=== PATIENT | male | born 1960 | race Hispanic/Latino ===

== ENCOUNTER 2018-03-28 20:22 | Inpatient (IN) | payer MEDICARE ==
[2018-03-28 20:29] VITALS: O2SAT 98
--- NOTE | 2018-03-28 20:35 | ED PDOC ---
Psych Transfer Clearance - Clearance Statement Clearance Statement: Dr Durán reviewed vital signs, lab results and transfer papers. Patient clinically stable for psychiatric admission.
[2018-03-28] MEDS ORDERED: Bismuth Subsalicylate 262 mg/15 ml Sus (240 ml) PO PRN (21:26)
[2018-03-28] MEDS ORDERED: Magnesium Hydroxide Susp 30 ml UD PO PRN (21:26)
[2018-03-28] MEDS ORDERED: Alum-Mag Hydrox-Simethicone Susp (30 mL) PO PRN (21:26)
[2018-03-28] MEDS ORDERED: DiphenhydrAMINE 50 mg/ml Inj IM PRN (21:29)
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
[2018-03-29 06:22] LABS: HEMOGLOBIN 14.8 g/dL (12.0-18.0); MEAN CORPUSCULAR HEMOGLOBIN 28.3 pg (27.0-31.0); MEAN CORPUSCULAR HGB CONC 32.9 g/dL (33.0-37.0); RBC 5.22 Mil/uL (4.40-5.90); RED CELL DISTRIBUTION WIDTH 13.7 % (11.5-14.5); WHITE BLOOD COUNT 4.7 K/uL (4.8-10.8)
[2018-03-29 07:17] LABS: ALB/GLOB RATIO 1.1 (1.0-2.1); ALBUMIN 3.8 g/dL (3.5-5.0); ALT/SGPT 36 U/L (21-72); AST/SGOT 30 U/L (17-59); BLOOD UREA NITROGEN 16 mg/dl (9-20); GFR NON-AFRICAN AMERICAN > 60; HDL CHOLESTEROL 53 MG/DL (30-70)
[2018-03-29 07:25] LABS: LDL CHOLESTEROL 120 mg/dL (0-129)
[2018-03-29 07:31] LABS: T4 6.35 ug/dl (5.5-11.0)
[2018-03-29 07:50] LABS: FERRITIN 88.8 ng/Ml (17.9-464)
--- NOTE | 2018-03-29 10:43 | CP.PCM.CON ---
<Lyudmila Veras - Last Filed: 03/29/18 13:07> History of Present Illness - History of Present Illness History of Present Illness: Pt is a 57 y/o male admitted to psych unit brought in for suicidal ideation, has hx of prior suicidal attempt. Reports that he feels hopeless these days. Denies suicidal plans or recent attempts. Denies auditory, visual or tactile hallucinations. Denies: CP, SOB, Cough, fever/chills, abdominal pain, n/v/c/d, dysuria, heat intolerance, palpitations, headache, or unintended weight loss. Reports good exercise tolerance. PMD: None PMHX: Denies Medications: none NKDA PSurgHx: Denies PFamHx: Denies Social: Unemployed, lives on SSI and Disability,homeless, has brother and sister in the area. Occasional canniboids but states he has cut back. Has occasional Cigar (<1/month). Drinks socially (1-2x/month) 1-2 shots of vodka. Denies illicit drug use Past Patient History - Past Social History Smoking Status: Unknown If Ever Smoked - CARDIAC Hx Cardiac Disorders: No Hx Hypercholesterolemia: No Hx Hypertension: No - PULMONARY Hx Respiratory Disorders: No Hx Asthma: No Hx Bronchitis: No Hx Chronic Obstructive Pulmonary Disease (COPD): No Hx Emphysema: No - NEUROLOGICAL Hx Neurological Disorder: No Hx Seizures: No - HEENT Hx HEENT Problems: No - RENAL Hx Chronic Kidney Disease: No - ENDOCRINE/METABOLIC Hx Endocrine Disorders: No Hx Diabetes Mellitus Type 1: No Hx Diabetes Mellitus Type 2: No Hx Hypothyroidism: No - HEMATOLOGICAL/ONCOLOGICAL Hx Blood Disorders: No - INTEGUMENTARY Hx Dermatological Problems: No - MUSCULOSKELETAL/RHEUMATOLOGICAL Hx Musculoskeletal Disorders: No Hx Falls: No Hx Unsteady Gait: No - GASTROINTESTINAL Hx Gastrointestinal Disorders: No HX Swallowing Problems: No - GENITOURINARY/GYNECOLOGICAL Hx Genitourinary Disorders: No - PSYCHIATRIC Hx Depression: Yes Hx Substance Use: Yes - SURGICAL HISTORY Hx Surgeries: No - ANESTHESIA Hx Anesthesia: No Hx Anesthesia Reactions: No Hx Malignant Hyperthermia: No Has any member of the family had a problem w/ anesthesia?: No Meds Allergies/Adverse Reactions: Allergies Allergy/AdvReac Type Severity Reaction Status Date / Time No Known Allergies Allergy Verified 03/28/18 20:25 - Medications Medications: Current Medications Acetaminophen (Tylenol 325mg Tab) 650 mg PO Q4 PRN PRN Reason: Pain, moderate (4-7) Al Hydrox/Mg Hydrox/Simethicone (Maalox Plus 30 Ml) 30 ml PO Q4 PRN PRN Reason: Dyspepsia Bismuth Subsalicylate (Pepto-Bismol) 524 mg PO Q4 PRN PRN Reason: Diarrhea Diphenhydramine HCl (Benadryl) 50 mg IM Q6 PRN PRN Reason: Extrapyramidal S/S Unable PO Diphenhydramine HCl (Benadryl) 50 mg PO Q6 PRN PRN Reason: Extrapyramidal Symptoms Diphenhydramine HCl (Benadryl) 50 mg PO HS PRN PRN Reason: Sleep Haloperidol (Haldol) 5 mg PO Q4 PRN PRN Reason: Agitation Haloperidol Lactate (Haldol) 5 mg IM Q4 PRN PRN Reason: Agitation, Unable to Take PO Lorazepam (Ativan) 1 mg IM Q8 PRN PRN Reason: Anxiety/Agitation,Unable PO Lorazepam (Ativan) 1 mg PO Q8 PRN PRN Reason: Anxiety/Agitation Magnesium Hydroxide (Milk Of Magnesia) 30 ml PO HS PRN PRN Reason: Constipation Physical Exam - Constitutional Appears: No Acute Distress (Obese male, calm and cooperative with exam) - Head Exam Head Exam: NORMAL INSPECTION - Eye Exam Eye Exam: Normal appearance - ENT Exam ENT Exam: Mucous Membranes Moist - Cardiovascular Exam Cardiovascular Exam: REGULAR RHYTHM, +S1, +S2. absent: Systolic Murmur - GI/Abdominal Exam GI & Abdominal Exam: Normal Bowel Sounds, Soft. absent: Tenderness - Extremities Exam Extremities exam: Positive for: normal inspection. Negative for: pedal edema - Neurological Exam Neurological exam: Alert, Oriented x3 - Psychiatric Exam Psychiatric exam: Flat Affect - Skin Skin Exam: Normal Color Results - Vital Signs Recent Vital Signs: Last Vital Signs Temp 97.9 F 03/29/18 05:38 Pulse 78 03/29/18 05:38 Resp 20 03/29/18 05:38 BP 144/90 03/29/18 05:38 Pulse Ox 98 03/28/18 20:25 - Labs Result Diagrams: 03/29/18 06:09 03/29/18 06:09 Labs: Laboratory Results - last 24 hr 01/03/29/18 03/29/18 06:09 06:09 06:09 WBC 4.7 L RBC 5.22 Hgb 14.8 Hct 44.9 MCV 86.0 MCH 28.3 MCHC 32.9 L RDW 13.7 Plt Count 221 Sodium 135 Potassium 4.1 Chloride 100 Carbon Dioxide 28 Anion Gap 11 BUN 16 Creatinine 0.8 Est GFR ( Amer) > 60 Est GFR (Non-Af Amer) > 60 Random Glucose 100 Calcium 9.0 Ferritin 88.8 Total Bilirubin 0.6 AST 30 ALT 36 Alkaline Phosphatase 71 Total Protein 7.2 Albumin 3.8 Globulin 3.4 Albumin/Globulin Ratio 1.1 Triglycerides 206 H Cholesterol 179 LDL Cholesterol Direct 120 HDL Cholesterol 53 Vitamin B12 < 159 L Free T4 0.87 Thyroxine (T4) 6.35 TSH 3rd Generation 5.44 H Assessment & Plan - Assessment and Plan (Free Text) Assessment: 57 y/o female with hx of Obesity and prior suicide attempt admitted to psychiatric unit for suicidal ideation. BP noted to be elevated. #Suicidal Ideation -As per psych management -Likely underlying depression #Elevated blood pressure -BP noted to be elevated 146/101 and 144/90 -Will need to be placed on antihypertensive with target goal <140 systolic and <90 as per JNC 8 guidelines. Discussed with patient and he has refused any pharmacological intervention at this time. Encouraged weight loss and lifestyle modifications -DASH/Cardiac Diet #Obesity -Hemoglobin A1C normal -Lipid panel: elevated TAG, otherwise normal #High TSH -TSH 5.44 -T4 normal -Subclinical hypothyroidism with low risk for future development of overt hypothyroidism. No proven benefit of starting supplementation. -Should repeat outpatient #Low B12 -<159 -No signs of Macrocytic Anemia -Will check for Methylmalonic Acid to confirm -Will supplement with oral or IM if confirmed Patient advised to get a PMD for management of his general health. <Christopher Tellez - Last Filed: 03/29/18 13:13> Meds - Medications Medications: Current Medications Acetaminophen (Tylenol 325mg Tab) 650 mg PO Q4 PRN PRN Reason: Pain, moderate (4-7) Al Hydrox/Mg Hydrox/Simethicone (Maalox Plus 30 Ml) 30 ml PO Q4 PRN PRN Reason: Dyspepsia Bismuth Subsalicylate (Pepto-Bismol) 524 mg PO Q4 PRN PRN Reason: Diarrhea Diphenhydramine HCl (Benadryl) 50 mg IM Q6 PRN PRN Reason: Extrapyramidal S/S Unable PO Diphenhydramine HCl (Benadryl) 50 mg PO Q6 PRN PRN Reason: Extrapyramidal Symptoms Diphenhydramine HCl (Benadryl) 50 mg PO HS PRN PRN Reason: Sleep Haloperidol (Haldol) 5 mg PO Q4 PRN PRN Reason: Agitation Haloperidol Lactate (Haldol) 5 mg IM Q4 PRN PRN Reason: Agitation, Unable to Take PO Lorazepam (Ativan) 1 mg IM Q8 PRN PRN Reason: Anxiety/Agitation,Unable PO Lorazepam (Ativan) 1 mg PO Q8 PRN PRN Reason: Anxiety/Agitation Magnesium Hydroxide (Milk Of Magnesia) 30 ml PO HS PRN PRN Reason: Constipation Quetiapine Fumarate (Seroquel) 100 mg PO HS CONNIE Results - Vital Signs Recent Vital Signs: Last Vital Signs Temp 97.9 F 03/29/18 05:38 Pulse 78 03/29/18 05:38 Resp 20 03/29/18 05:38 BP 144/90 03/29/18 05:38 Pulse Ox 98 03/28/18 20:25 - Labs Result Diagrams: 03/29/18 06:09 03/29/18 06:09 Labs: Laboratory Results - last 24 hr 03/29/18 03/29/18 03/29/18 06:09 06:09 06:09 WBC 4.7 L RBC 5.22 Hgb 14.8 Hct 44.9 MCV 86.0 MCH 28.3 MCHC 32.9 L RDW 13.7 Plt Count 221 Sodium 135 Potassium 4.1 Chloride 100 Carbon Dioxide 28 Anion Gap 11 BUN 16 Creatinine 0.8 Est GFR ( Amer) > 60 Est GFR (Non-Af Amer) > 60 Random Glucose 100 Hemoglobin A1c 5.4 Calcium 9.0 Ferritin 88.8 Total Bilirubin 0.6 AST 30 ALT 36 Alkaline Phosphatase 71 Total Protein 7.2 Albumin 3.8 Globulin 3.4 Albumin/Globulin Ratio 1.1 Triglycerides 206 H Cholesterol 179 LDL Cholesterol Direct 120 HDL Cholesterol 53 Vitamin B12 < 159 L Free T4 Thyroxine (T4) 6.35 TSH 3rd Generation 5.44 H 03/29/18 06:09 WBC RBC Hgb Hct MCV MCH MCHC RDW Plt Count Sodium Potassium Chloride Carbon Dioxide Anion Gap BUN Creatinine Est GFR ( Amer) Est GFR (Non-Af Amer) Random Glucose Hemoglobin A1c Calcium Ferritin Total Bilirubin AST ALT Alkaline Phosphatase Total Protein Albumin Globulin Albumin/Globulin Ratio Triglycerides Cholesterol LDL Cholesterol Direct HDL Cholesterol Vitamin B12 Free T4 0.87 Thyroxine (T4) TSH 3rd Generation Attending/Attestation - Attestation I have personally seen and examined this patient.: Yes I have fully participated in the care of the patient.: Yes I have reviewed all pertinent clinical information: Yes Notes (Text): 03/29/18 13:13 Patient seen and examined with resident. Case discussed and agreed with assessment.
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
[2018-03-29 21:24] LABS: FOLATE 11.3 ng/mL
--- NOTE | 2018-03-30 10:01 | PCM.PYCHPN ---
Psychiatric Progress Note - Psychiatric Progress Note Patient seen today, length of contact: pt is seen and evaluated. Patient Chief Complaint: pt has remained very depressed and anxious and unable to sleep at night and with poor insight and need further stabilization . Mental Status Examination - Cognitive Function Orientation: Person, Place, Situation, Time - Mood Mood: Depressed - Affect Affect: Constricted, Depressed - Formal Thought Process Formal Thought Process: Circumstantial
--- NOTE | 2018-03-30 10:28 | PCM.PYCHPN ---
Psychiatric Progress Note - Psychiatric Progress Note Patient seen today, length of contact: pt is seen and evaluated. Patient Chief Complaint: pt has remained very depressed and anxious and unable to sleep at night and with poor insight and need further stabilization . Medication Change: Yes (increase seroquel to 150 gbhs to stabilize mood ,depression) Mental Status Examination - Cognitive Function Orientation: Person, Place, Situation, Time - Mood Mood: Depressed - Affect Affect: Constricted, Depressed - Formal Thought Process Formal Thought Process: Circumstantial Goal/Treatment Plan - Goal/Treatment Plan Progress Toward Problem(s) and Goals/Treatment Plan: will continue to stabilize pt with titrating seroquel to 150 mg hs to stabilize the mood and depression and engage pt in therapu. Disposition as per dr summers
--- NOTE | 2018-03-31 10:43 | PCM.PYCHPN ---
Psychiatric Progress Note - Psychiatric Progress Note Patient seen today, length of contact: pt is seen and evaluated. Patient Chief Complaint: I am having hard time to sleep Problems Identified/Issues Discussed: pt evaluated , presenting with depressed mood and affect, reported poor sleep, isolating himself in his room, denied any current thoughts of self harm denied perceptual disturbances DSM 5 Symptoms Update: bipolar disorder depressed Medication Change: Yes (increase seroquel to 200 mg qhs ) Medical Record Reviewed: Yes Mental Status Examination - Cognitive Function Orientation: Person, Place, Situation, Time Memory: Intact Attention: WNL Concentration: WNL Association: WNL Fund of Knowledge: [facility] Decription of patient's judgement and insights: partial insight fair judgment - Mood Mood: Depressed - Affect Affect: Constricted, Depressed - Speech Speech: Soft - Formal Thought Process Formal Thought Process: Circumstantial - Suicidal Ideation Suicidal Ideation: No - Homicidal Ideation Homicidal Ideation: No Goal/Treatment Plan - Goal/Treatment Plan Need for Continued Stay: Severe depression anxiety, Discharge may exacerbated symptoms Progress Toward Problem(s) and Goals/Treatment Plan: increase seroquel 200mg qhs cbt , group and supportive therapy
--- NOTE | 2018-04-01 09:59 | PCM.PYCHPN ---
Psychiatric Progress Note - Psychiatric Progress Note Patient seen today, length of contact: Pt evaluated, case discussed w/ team, chart reviewed Patient Chief Complaint: "I'm at the end of my rope." Problems Identified/Issues Discussed: Patient continues to be depressed and labile. He was observed talking and cursing to himself, but he is denying psychotic symptoms to song writer. Patient appears guarded and internally preoccupied. He denies acute AH/VH/SI/HI. Medication Change: Yes (Increase Seroquel) Medical Record Reviewed: Yes Consults ordered or reviewed: Medicine consult Mental Status Examination - Cognitive Function Orientation: Person, Place, Situation, Time Memory: Intact Attention: WNL Concentration: WNL Association: WNL Fund of Knowledge: [facility] Decription of patient's judgement and insights: Poor I/J - Mood Mood: Depressed - Affect Affect: Constricted, Depressed - Speech Speech: Soft - Formal Thought Process Formal Thought Process: Circumstantial Psychotic Thoughts and Behaviors: Denies AH/VH/paranoia/delusions but seems internally preoccupied. - Suicidal Ideation Suicidal Ideation: No - Homicidal Ideation Homicidal Ideation: No Goal/Treatment Plan - Goal/Treatment Plan Need for Continued Stay: Severe depression anxiety, Discharge may exacerbated symptoms Progress Toward Problem(s) and Goals/Treatment Plan: Bipolar Disorder -Individual and group therapy -Psychoeducation -Increase Seroquel -Medicine consult -Disposition planning
[2018-04-01 12:18] LABS: METHYLMALONIC ACID,SERUM 526 nmol/L (87-318)
--- NOTE | 2018-04-02 09:50 | PCM.PYCHPN ---
Psychiatric Progress Note - Psychiatric Progress Note Patient seen today, length of contact: Pt evaluated, case discussed w/ team, chart reviewed Patient Chief Complaint: "I'm at the end of my rope." Problems Identified/Issues Discussed: Patient continues to be guarded, observed talking to himself at times and grabbing at the air. He does not want to speak with science writer, just stating "I already spoke with you yesterday." Yesterday patient stated he is not agreeab le to taking more than Seroquel 250 mg and is not agreeable to taking any other medications at this time. Medication Change: No Medical Record Reviewed: Yes Consults ordered or reviewed: Medicine consult Mental Status Examination - Cognitive Function Orientation: Person, Place, Situation, Time Memory: Intact Attention: WNL Concentration: WNL Association: WNL Fund of Knowledge: [facility] Decription of patient's judgement and insights: Poor I/J - Affect Affect: Constricted - Speech Speech: Appropriate - Formal Thought Process Formal Thought Process: Other (Poverty of speech) Psychotic Thoughts and Behaviors: Guarded, seems internally preoccupied at times - Suicidal Ideation Suicidal Ideation: No - Homicidal Ideation Homicidal Ideation: No Goal/Treatment Plan - Goal/Treatment Plan Need for Continued Stay: Severe depression anxiety, Discharge may exacerbated symptoms Progress Toward Problem(s) and Goals/Treatment Plan: Bipolar Disorder -Individual and group therapy -Psychoeducation -Continue Seroquel -Medicine consult -Disposition planning
--- NOTE | 2018-04-03 11:09 | PCM.PYCHPN ---
Psychiatric Progress Note - Psychiatric Progress Note Patient seen today, length of contact: Pt evaluated, case discussed w/ team, chart reviewed Patient Chief Complaint: "I'm at the end of my rope." Problems Identified/Issues Discussed: Patient continues to be guarded, responding to internal stimuli, observed talking to himself and cursing spontaneously. He continues to refuse to engage in a long conversation with underwriter solicitation director. He is now agreeable with increasing the Seroquel after speaking to his brother in law. Medication Change: Yes (Increase Seroquel) Medical Record Reviewed: Yes Consults ordered or reviewed: Medicine consult Mental Status Examination - Cognitive Function Orientation: Person, Place, Situation, Time Memory: Intact Attention: WNL Concentration: WNL Association: WNL Fund of Knowledge: [facility] Decription of patient's judgement and insights: Poor I/J - Mood Mood: Depressed - Affect Affect: Constricted - Speech Speech: Appropriate - Formal Thought Process Formal Thought Process: Other (Poverty of speech) Psychotic Thoughts and Behaviors: Guarded, seems internally preoccupied at times, observed talking to himself - Suicidal Ideation Suicidal Ideation: No - Homicidal Ideation Homicidal Ideation: No Goal/Treatment Plan - Goal/Treatment Plan Need for Continued Stay: Severe depression anxiety, Discharge may exacerbated symptoms Progress Toward Problem(s) and Goals/Treatment Plan: Bipolar Disorder -Individual and group therapy -Psychoeducation -Increase Seroquel -Medicine consult -Disposition planning
--- NOTE | 2018-04-04 09:50 | PCM.PYCHPN ---
Psychiatric Progress Note - Psychiatric Progress Note Patient seen today, length of contact: Pt evaluated, case discussed w/ team, chart reviewed Patient Chief Complaint: "I'm at the end of my rope." Problems Identified/Issues Discussed: Patient continues to refuse to meet with the software writer or engage in a long conversation. He is taking Seroquel and is agreeable to increasing the dosage. He continues to be labile, guarded, internally preoccupied, talking and cursing to himself, isolating and easily agitated. Medication Change: Yes (Increase Seroquel) Medical Record Reviewed: Yes Consults ordered or reviewed: Medicine consult Mental Status Examination - Cognitive Function Orientation: Person, Place, Situation, Time Memory: Intact Attention: WNL Concentration: WNL Association: WNL Fund of Knowledge: [facility] Decription of patient's judgement and insights: Poor I/J - Mood Mood: Depressed - Affect Affect: Constricted - Speech Speech: Appropriate - Formal Thought Process Formal Thought Process: Other (Poverty of speech) Psychotic Thoughts and Behaviors: Guarded, seems internally preoccupied at times, observed talking to himself - Suicidal Ideation Suicidal Ideation: No - Homicidal Ideation Homicidal Ideation: No Goal/Treatment Plan - Goal/Treatment Plan Need for Continued Stay: Severe depression anxiety, Discharge may exacerbated symptoms Progress Toward Problem(s) and Goals/Treatment Plan: Bipolar Disorder -Individual and group therapy -Psychoeducation -Increase Seroquel -Medicine consult -Disposition planning
--- NOTE | 2018-04-05 07:57 | PCM.PYCHPN ---
Psychiatric Progress Note - Psychiatric Progress Note Patient seen today, length of contact: Pt evaluated, case discussed w/ team, chart reviewed Patient Chief Complaint: "I'm at the end of my rope." Problems Identified/Issues Discussed: Patient continues to refuse to meet with the senior writer or engage in a long conversation. He is compliant with Seroquel which is the only medication he is willing to take. He continues to be labile, guarded, internally preoccupied, observed talking and cursing to himself, observed pounding on his chest in a bizarre manner, isolating and easily agitated. Medication Change: No Medical Record Reviewed: Yes Consults ordered or reviewed: Medicine consult Mental Status Examination - Cognitive Function Orientation: Person, Place, Situation, Time Memory: Intact Attention: WNL Concentration: WNL Association: WN Fund of Knowledge: [facility] Decription of patient's judgement and insights: Poor I/J - Mood Mood: Depressed - Affect Affect: Constricted - Speech Speech: Appropriate - Formal Thought Process Formal Thought Process: Other (Poverty of speech) Psychotic Thoughts and Behaviors: Guarded, seems internally preoccupied at times, observed talking to himself - Suicidal Ideation Suicidal Ideation: No - Homicidal Ideation Homicidal Ideation: No Goal/Treatment Plan - Goal/Treatment Plan Need for Continued Stay: Severe depression anxiety, Discharge may exacerbated symptoms Progress Toward Problem(s) and Goals/Treatment Plan: Bipolar Disorder -Individual and group therapy -Psychoeducation -Continue to titrate Seroquel gradually; patient unwilling to take any other medications -Medicine consult -Disposition planning
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
--- NOTE | 2018-04-06 09:41 | PCM.PYCHPN ---
Psychiatric Progress Note - Psychiatric Progress Note Patient seen today, length of contact: Pt evaluated, case discussed w/ team, chart reviewed Patient Chief Complaint: I am better Problems Identified/Issues Discussed: pt evaluated ,seen in day room, reported feeling better with the increase in seroquel , denied any current thoughts of self harm denied perceptual disturbances DSM 5 Symptoms Update: bipolar disorder Medication Change: No Medical Record Reviewed: Yes Mental Status Examination - Cognitive Function Orientation: Person, Place, Situation, Time Memory: Intact Attention: WNL Concentration: WNL Association: WNL Fund of Knowledge: WNL - Mood Mood: Depressed - Affect Affect: Constricted - Speech Speech: Appropriate - Formal Thought Process Formal Thought Process: Other (Poverty of speech) - Suicidal Ideation Suicidal Ideation: No - Homicidal Ideation Homicidal Ideation: No Goal/Treatment Plan - Goal/Treatment Plan Need for Continued Stay: Severe depression anxiety, Discharge may exacerbated symptoms Progress Toward Problem(s) and Goals/Treatment Plan: continue current medications cbt , group and supportive therapy
--- NOTE | 2018-04-07 07:56 | PCM.PYCHPN ---
Psychiatric Progress Note - Psychiatric Progress Note Patient seen today, length of contact: Pt evaluated, case discussed w/ team, chart reviewed Patient Chief Complaint: "I'm at the end of my rope." Problems Identified/Issues Discussed: Patient continues to refuse to engage in a long conversation with television writer or meet in her office. He is compliant with Seroquel which is the only medication he is willing to take. He continues to be labile, guarded, internally preoccupied, observed talking to himself, isolating and easily agitated. Medication Change: No Medical Record Reviewed: Yes Consults ordered or reviewed: Medicine consult Mental Status Examination - Cognitive Function Orientation: Person, Place, Situation, Time Memory: Intact Attention: WNL Concentration: WNL Association: WNL Fund of Knowledge: [facility] Decription of patient's judgement and insights: Poor I/J - Mood Mood: Depressed - Affect Affect: Constricted - Speech Speech: Appropriate - Formal Thought Process Formal Thought Process: Other (Poverty of speech) Psychotic Thoughts and Behaviors: +Internally preoccupied - Suicidal Ideation Suicidal Ideation: No - Homicidal Ideation Homicidal Ideation: No Goal/Treatment Plan - Goal/Treatment Plan Need for Continued Stay: Severe depression anxiety, Discharge may exacerbated symptoms Progress Toward Problem(s) and Goals/Treatment Plan: Bipolar Disorder -Individual and group therapy -Psychoeducation -Continue Seroquel -Medicine consult -Disposition planning
--- NOTE | 2018-04-08 08:46 | PCM.PYCHPN ---
Psychiatric Progress Note - Psychiatric Progress Note Patient seen today, length of contact: Pt evaluated, case discussed w/ team, chart reviewed Patient Chief Complaint: "I'm at the end of my rope." Problems Identified/Issues Discussed: Patient is irritable w/ staff and becomes agitated when spoken to or asked to take his vitals. Patient continues to refuse to engage in a long conversation with senior mortgage underwriter or meet in her office. He is compliant with Seroquel which is the only medication he is willing to take. He continues to be labile, guarded, internally preoccupied, observed talking to himself, pounds his chest at times in a bizarre manner, isolating and easily agitated. Medication Change: Yes (Increase Seroquel) Medical Record Reviewed: Yes Consults ordered or reviewed: Medicine consult Mental Status Examination - Cognitive Function Orientation: Person, Place, Situation, Time Memory: Intact Attention: WNL Concentration: WNL Association: WNL Fund of Knowledge: WNL Decription of patient's judgement and insights: Poor I/J - Mood Mood: Depressed - Affect Affect: Constricted - Speech Speech: Appropriate - Formal Thought Process Formal Thought Process: Other (Poverty of speech) Psychotic Thoughts and Behaviors: +Internally preoccupied - Suicidal Ideation Suicidal Ideation: No - Homicidal Ideation Homicidal Ideation: No Goal/Treatment Plan - Goal/Treatment Plan Need for Continued Stay: Severe depression anxiety, Discharge may exacerbated symptoms Progress Toward Problem(s) and Goals/Treatment Plan: Bipolar Disorder -Individual and group therapy -Psychoeducation -Increase Seroquel -Medicine consult -Disposition planning
--- NOTE | 2018-04-09 07:45 | PCM.PYCHPN ---
Psychiatric Progress Note - Psychiatric Progress Note Patient seen today, length of contact: Pt evaluated, case discussed w/ team, chart reviewed Patient Chief Complaint: "I'm at the end of my rope." Problems Identified/Issues Discussed: Patient continues to refuse to meet with underwriter solicitation director. He has not met with underwriter solicitation director since the day of his initial evaluation. He was observed hitting himself in the head yesterday. He continues to be irritable and easily agitated. He continues to be labile, guarded, internally preoccupied, observed talking to himself, pounds his chest at times in a bizarre manner, and isolates himself from others. Patient is not agreeable to taking any additional medications or mood stabilizers. 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 Medication Change: Yes (Increase Seroquel) Medical Record Reviewed: Yes Consults ordered or reviewed: Medicine consult Mental Status Examination - Cognitive Function Orientation: Person, Place, Situation, Time Memory: Intact Attention: WNL Concentration: WNL Association: WNL Fund of Knowledge: [facility] Decription of patient's judgement and insights: Poor I/J - Mood Mood: Depressed - Affect Affect: Constricted - Speech Speech: Appropriate - Formal Thought Process Formal Thought Process: Other (Poverty of speech) Psychotic Thoughts and Behaviors: +Internally preoccupied, Bizarre, responding to internal stimuli, talking to himself - Suicidal Ideation Suicidal Ideation: No - Homicidal Ideation Homicidal Ideation: No Goal/Treatment Plan - Goal/Treatment Plan Need for Continued Stay: Severe depression anxiety, Discharge may exacerbated symptoms Progress Toward Problem(s) and Goals/Treatment Plan: Bipolar Disorder -Individual and group therapy -Psychoeducation -Increase Seroquel -Medicine consult -Screen for involuntary commitment; patient is not cooperative with treatment and may need [place] [facility] treatment -Disposition planning
[2018-04-09 12:38] LABS: BASO % 0.6 % (0.0-2.0); EOS # 0.1 K/uL (0.0-0.7); EOS % 2.4 % (0.0-4.0); HEMOGLOBIN 15.7 g/dL (12.0-18.0); LYMPH # 1.3 K/uL (1.0-4.3); MEAN CELL VOLUME 84.2 fl (80.0-94.0); MEAN CORPUSCULAR HGB CONC 33.3 g/dL (33.0-37.0); MONO # 0.7 K/uL (0.0-0.8); MONO % 11.6 % (0.0-10.0); NEUT # 3.5 K/uL (1.8-7.0); NEUT % 62.4 % (50.0-75.0); NRBC % 0.2 % (0.0-0.0); RBC 5.59 Mil/uL (4.40-5.90); RED CELL DISTRIBUTION WIDTH 13.5 % (11.5-14.5); WHITE BLOOD COUNT 5.7 K/uL (4.8-10.8)
[2018-04-09 12:58] LABS: ALB/GLOB RATIO 1.2 (1.0-2.1); ALBUMIN 4.5 g/dL (3.5-5.0); ALT/SGPT 40 U/L (21-72); AST/SGOT 28 U/L (17-59); BLOOD UREA NITROGEN 16 mg/dl (9-20); CALCIUM 9.7 mg/dL (8.4-10.2); GFR NON-AFRICAN AMERICAN > 60
--- NOTE | 2018-04-10 09:51 | PCM.PYCHPN ---
Psychiatric Progress Note - Psychiatric Progress Note Patient seen today, length of contact: Pt evaluated, case discussed w/ team, chart reviewed Patient Chief Complaint: "I'm at the end of my rope." Problems Identified/Issues Discussed: Patient was screened by [facility] for involuntary psychiatric admission, but was found to not meet criteria. He continues to refuse to meet with commercial real estate underwriter. He continues to be irritable and easily agitated. He continues to be labile, gu arded, internally preoccupied, observed talking to himself, pounds his chest and head at times in a bizarre manner, and isolates himself from others. Patient is not agreeable to taking any additional medications or mood stabilizers. Patient has been compliant with Seroquel. Medication Change: No Medical Record Reviewed: Yes Consults ordered or reviewed: Medicine consult Mental Status Examination - Cognitive Function Orientation: Person, Place, Situation, Time Memory: Intact Attention: WNL Concentration: WNL Association: WNL Fund of Knowledge: WN Decription of patient's judgement and insights: Poor I/J - Mood Mood: Depressed - Affect Affect: Constricted - Speech Speech: Appropriate - Formal Thought Process Formal Thought Process: Other (Poverty of speech) Psychotic Thoughts and Behaviors: +Internally preoccupied, Bizarre, responding to internal stimuli, talking to himself - Suicidal Ideation Suicidal Ideation: No - Homicidal Ideation Homicidal Ideation: No Goal/Treatment Plan - Goal/Treatment Plan Need for Continued Stay: Severe depression anxiety, Discharge may exacerbated symptoms Progress Toward Problem(s) and Goals/Treatment Plan: Bipolar Disorder -Individual and group therapy -Psychoeducation -Continue Seroquel -Medicine consult -Disposition planning
--- NOTE | 2018-04-11 08:11 | PCM.PYCHPN ---
Psychiatric Progress Note - Psychiatric Progress Note Patient seen today, length of contact: Pt evaluated, case discussed w/ team, chart reviewed Patient Chief Complaint: "I'm at the end of my rope." Problems Identified/Issues Discussed: Patient continues to refuse to meet with underwriter mortgage loan. He is menacing towards staff when he is asked to do things, such as take his vitals. He will not eat in the common areas because he becomes easily agitated when around other people. He continues to be irritable, labile, guarded, internally preoccupied, observed talking to himself, cursing at outloud, hits/bangs his chest and head at times in a bizarre manner, and isolates himself from others. Patient is not agreeable to taking any additional medications or mood stabilizers. Medication Change: Yes (Increase Seroquel) Medical Record Reviewed: Yes Consults ordered or reviewed: Medicine consult Mental Status Examination - Cognitive Function Orientation: Person, Place, Situation, Time Memory: Intact Attention: WNL Concentration: WNL Association: WNL Fund of Knowledge: [facility] Decription of patient's judgement and insights: Poor I/J - Mood Mood: Depressed - Affect Affect: Constricted - Speech Speech: Appropriate - Formal Thought Process Formal Thought Process: Other (Poverty of speech) Psychotic Thoughts and Behaviors: +Internally preoccupied, Bizarre, responding to internal stimuli, talking to himself - Suicidal Ideation Suicidal Ideation: No - Homicidal Ideation Homicidal Ideation: No Goal/Treatment Plan - Goal/Treatment Plan Need for Continued Stay: Severe depression anxiety, Discharge may exacerbated symptoms Progress Toward Problem(s) and Goals/Treatment Plan: Bipolar Disorder -Individual and group therapy -Psychoeducation -Increase Seroquel -Medicine consult -Rescreen for involuntary psychiatric admission
--- NOTE | 2018-04-12 08:17 | PCM.PYCHPN ---
Psychiatric Progress Note - Psychiatric Progress Note Patient seen today, length of contact: Pt evaluated, case discussed w/ team, chart reviewed Patient Chief Complaint: "I'm at the end of my rope." Problems Identified/Issues Discussed: Patient was screened for involuntary psychiatric [place] [facility] [place] Patient continues to refuse to meet with parts data writer. He continues to be irritable, labile, guarded, internally preoccupied, observed talking to himself, cursing at outloud, hits/bangs his chest and head at times in a bizarre manner, and isolates himself from others. Patient is not agreeable to taking any additional medications or mood stabilizers. Medication Change: No Medical Record Reviewed: Yes Consults ordered or reviewed: Medicine consult Mental Status Examination - Cognitive Function Orientation: Person, Place, Situation, Time Memory: Intact Attention: WNL Concentration: WNL Association: WNL Fund of Knowledge: [facility] Decription of patient's judgement and insights: Poor I/J - Mood Mood: Depressed - Affect Affect: Constricted - Speech Speech: Appropriate - Formal Thought Process Formal Thought Process: Other (Poverty of speech) Psychotic Thoughts and Behaviors: +Internally preoccupied, Bizarre, responding to internal stimuli, talking to himself - Suicidal Ideation Suicidal Ideation: No - Homicidal Ideation Homicidal Ideation: No Goal/Treatment Plan - Goal/Treatment Plan Need for Continued Stay: Severe depression anxiety, Discharge may exacerbated symptoms Progress Toward Problem(s) and Goals/Treatment Plan: Bipolar Disorder -Individual and group therapy -Psychoeducation -Continue Seroquel -Medicine consult -[place] [facility] [place] when bed is available
--- NOTE | 2018-04-13 08:38 | PCM.PYCHPN ---
Psychiatric Progress Note - Psychiatric Progress Note Patient seen today, length of contact: Pt evaluated, case discussed w/ team, chart reviewed Patient Chief Complaint: "I'm at the end of my rope." Problems Identified/Issues Discussed: Patient was screened for involuntary psychiatric admission and accepted by [facility] [place], pending bed and transfer. Patient continues to refuse to meet with brief writer. He continues to be irritable, labile, guarded, internally preoccupied, observed talking to himself, cursing at outloud, hits/bangs his chest and head at times in a bizarre manner, and isolates himself from others. Patient is not agreeable to taking any additional medications or mood stabilizers. Medication Change: No Medical Record Reviewed: Yes Consults ordered or reviewed: Medicine consult Mental Status Examination - Cognitive Function Orientation: Person, Place, Situation, Time Memory: Intact Attention: WNL Concentration: WNL Association: [facility] Fund of Knowledge: [facility] Decription of patient's judgement and insights: Poor I/J - Mood Mood: Depressed - Affect Affect: Constricted - Speech Speech: Appropriate - Formal Thought Process Formal Thought Process: Other (Poverty of speech) Psychotic Thoughts and Behaviors: +Internally preoccupied, Bizarre, responding to internal stimuli, talking to himself - Suicidal Ideation Suicidal Ideation: No - Homicidal Ideation Homicidal Ideation: No Goal/Treatment Plan - Goal/Treatment Plan Need for Continued Stay: Severe depression anxiety, Discharge may exacerbated symptoms Progress Toward Problem(s) and Goals/Treatment Plan: Bipolar Disorder -Individual and group therapy -Psychoeducation -Continue Seroquel -Medicine consult -Transfer to [facility] [place] for involuntary psychiatric admission when bed is available
--- NOTE | 2018-04-14 08:35 | PCM.PYCHPN ---
Psychiatric Progress Note - Psychiatric Progress Note Patient seen today, length of contact: Pt evaluated, case discussed w/ team, chart reviewed Patient Chief Complaint: "I'm at the end of my rope." Problems Identified/Issues Discussed: No new events. Patient was screened for involuntary psychiatric admission and [place] [facility] [place] and [place]. He continues to be irritable, labile, guarded, internally preoccupied, observed talking to himself, cursing at outloud, hits/bangs his chest and head at times in a bizarre manner, and isolates himself from others. Patient is not agreeable to taking any additional medications or mood stabilizers. Medication Change: No Medical Record Reviewed: Yes Consults ordered or reviewed: Medicine consult Mental Status Examination - Cognitive Function Orientation: Person, Place, Situation, Time Memory: Intact Attention: WNL Concentration: WNL Association: WNL Fund of Knowledge: [facility] Decription of patient's judgement and insights: Poor I/J - Mood Mood: Depressed - Affect Affect: Constricted - Speech Speech: Appropriate - Formal Thought Process Formal Thought Process: Other (Poverty of speech) Psychotic Thoughts and Behaviors: +Internally preoccupied, Bizarre, responding to internal stimuli, talking to himself - Suicidal Ideation Suicidal Ideation: No - Homicidal Ideation Homicidal Ideation: No Goal/Treatment Plan - Goal/Treatment Plan Need for Continued Stay: Severe depression anxiety, Discharge may exacerbated symptoms Progress Toward Problem(s) and Goals/Treatment Plan: Bipolar Disorder -Individual and group therapy -Psychoeducation -Continue Seroquel -Medicine consult -Transfer to [facility] [place] for involuntary psychiatric admission when bed is available
--- NOTE | 2018-04-15 08:17 | PCM.PYCHPN ---
Psychiatric Progress Note - Psychiatric Progress Note Patient seen today, length of contact: Pt evaluated, case discussed w/ team, chart reviewed Patient Chief Complaint: "I'm at the end of my rope." Problems Identified/Issues Discussed: No new events overnight. Patient was screened for involuntary psychiatric admission and accepted by [facility] [place], pending bed and transfer. He continues to be irritable, labile, guarded, internally preoccupied, observed talking to himself, cursing at outloud, hits/bangs his chest and head at times in a bizarre manner, and isolates himself from others. Patient is not agreeable to taking any additional medications or mood stabilizers. Medication Change: No Medical Record Reviewed: Yes Consults ordered or reviewed: Medicine consult Mental Status Examination - Cognitive Function Orientation: Person, Place, Situation, Time Memory: Intact Attention: WNL Concentration: WNL Association: WNL Fund of Knowledge: [facility] Decription of patient's judgement and insights: Poor I/J - Mood Mood: Depressed - Affect Affect: Constricted - Speech Speech: Appropriate - Formal Thought Process Formal Thought Process: Other (Poverty of speech) Psychotic Thoughts and Behaviors: +Internally preoccupied, Bizarre, responding to internal stimuli, talking to himself - Suicidal Ideation Suicidal Ideation: No - Homicidal Ideation Homicidal Ideation: No Goal/Treatment Plan - Goal/Treatment Plan Need for Continued Stay: Severe depression anxiety, Discharge may exacerbated symptoms Progress Toward Problem(s) and Goals/Treatment Plan: Bipolar Disorder -Individual and group therapy -Psychoeducation -Continue Seroquel -Medicine consult -Transfer to [facility] [place] for involuntary psychiatric admission when bed is available
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
[2018-04-15 17:35] VITALS: BP 146/96; PULSE 89; RESP 20; TEMP 97
--- NOTE | 2018-04-16 08:08 | PCM.PYCHDC ---
Mental Status Examination - Mental Status Examination Orientation: Person, Place, Situation, Time Memory: Intact Mood: Depressed Affect: Constricted Speech: Appropriate Formal Thought Process: Hallucinations Description of patient's judgement and insight: Poor I/J Psychotic Thoughts and Behaviors: +Internally preoccupied, Bizarre, responding to internal stimuli, talking to himself Suicidal Ideation: No Current Homicidal Ideation?: No Discharge Summary - Discharge Note Reason for Hospitalization: HPI: 57 yo male w/ h/o Bipolar Disorder, presents with suicidal ideation without plan, feelings of depression, hopelessness and sleep disturbances. He reports a history of multiple psychiatric hospitalizations, but has not been compliant with treatment or medications. Patient is only agreeable to restarting Seroquel at this time. No AH/VH/paranoia/delusions/HI. PPHx: H/o psychiatric hospitalizations at [facility] and most recently [facility] in 2018. He also reports a history of suicide a ttempt in 2001 by cutting his wrist, inner elbow, groin and ankles. History of treatment with Seroquel. Patient can not recall other medications. PMD: None PMHX: Denies ALL: NKDA PSurgHx: Denies SHx: Unemployed, lives on SSI and Disability, homeless, lived in a tent, has brother and sister in the area. Reports that he last used marijuana 2 years ago. Has occasional Cigar (<1/month). Drinks 6 pack of beer intermittently; denied daily use. Denies illicit drug use Consultations:: List each consultation separately and include: 1. Reason for request. 2. Findings. 3. Follow-up Consultations: Medicine consult Summary of Hospital Course include:: 1. Description of specific treatment plan utilized for patients during their course of treatmen. 2. Summarize the time- course for resolution of acute symptoms and/or regressed behaviors. 3. Describe issues identified and worked on during hospitalization. 4. Describe medication utilized. 5. Describe medical problems identified and treated. 6. Reassessment of suicide risk Summary of Hospital Course: Patient was admitted to the psychiatry unit. Individual and group therapy were provided. Patient was treated w/ Seroquel 400 mg PO Q12. He continues to be bizarre, internally preoccupied, talking to himself and engaging in self harm, including hitting his own head and chest. Patient was screened by [facility] [place], accepted for involuntary psychiatric admission and transferred. - Diagnosis (1) Bipolar disorder Status: Acute - Final Diagnosis (DSM 5) Condition upon Discharge: STABLE DSM 5: Bipolar Disorder Disposition: DISCHARGE TO [facility] Follow-up Treatment Plan: Bipolar Disorder -Individual and group therapy -Psychoeducation -Continue Seroquel -Medicine consult -Transfer to [facility] [place] for involuntary psychiatric admission - Smoking Cessation Smoking Cessation Medication prescribed: No Reason for not providing: Not indicated - Antipsychotic Medications Pt discharged on 2 or more routine antipsychotic medications: No
== END 2018-04-15 22:15 | DRG 885 ==
LOC: H.ER 20:22 → H.STEP 20:32
PROVIDERS: ADMIT Psychiatry & Neurology Psychiatry; ATTEND Psychiatry & Neurology Psychiatry
PROC: GZ51ZZZ Individual Psychotherapy, Behavioral (ICD-10-PCS; 2018-03-29)
PROC: GZ56ZZZ Individual Psychotherapy, Supportive (ICD-10-PCS; 2018-03-29)
PROC: GZHZZZZ Group Psychotherapy (ICD-10-PCS; principal; 2018-04-03)
DX: F31.9 Bipolar disorder, unspecified (principal); R45.851 Suicidal ideations; Z59.0 Homelessness; Z91.19 Patient's noncompliance with other medical treatment and regimen; Z91.5 Personal history of self-harm; R03.0 Elevated blood-pressure reading, without diagnosis of hypertension; E03.9 Hypothyroidism, unspecified; E66.9 Obesity, unspecified; F17.290 Nicotine dependence, other tobacco product, uncomplicated; Z68.27 Body mass index [BMI] 27.0-27.9, adult